=== PATIENT | female | born 1970 | race Caucasian/White ===

== ENCOUNTER 2024-12-19 07:12 | Outpatient (RCR) | payer BC, SELFPAY | END 2024-12-19 23:59 | disposition home or self-care (01) | LOC: RPT 07:12 | PROVIDERS: ATTENDING PHYSICIAN Physician Assistant Surgical; FAMILY PHYSICIAN Physician Assistant Medical | DX: S93.401D Sprain of unspecified ligament of right ankle, subsequent encounter (principal); Z73.6 Limitation of activities due to disability; R26.89 Other abnormalities of gait and mobility; W10.1XXD Fall (on)(from) sidewalk curb, subsequent encounter | CPT/HCPCS: 97110; 97161 ==

== ENCOUNTER 2025-01-13 06:59 | Outpatient (RCR) | payer BC, SELFPAY | END 2025-01-13 23:59 | disposition home or self-care (01) | LOC: RPT 06:59 | PROVIDERS: ATTENDING PHYSICIAN Physician Assistant Surgical; FAMILY PHYSICIAN Physician Assistant Medical | DX: S93.401D Sprain of unspecified ligament of right ankle, subsequent encounter (principal); Z73.6 Limitation of activities due to disability; R26.89 Other abnormalities of gait and mobility; W10.1XXD Fall (on)(from) sidewalk curb, subsequent encounter | CPT/HCPCS: 97110; 97112 ==